=== PATIENT | female | born 1950 | race African-American/Black ===

== ENCOUNTER 2017-03-12 11:48 | Inpatient (IN) | payer BC, SELFPAY ==
[2017-03-10 10:23] LABS: BASOPHILS 1.7 %; BASOPHILS ABSOLUTE 0.05 10/3/uL (0.0-0.16); EOSINOPHILS 11.6 %; EOSINOPHILS ABSOLUTE 0.34 10/3/uL (0.0-0.53); HEMATOCRIT 33.7 % (36.0-48.0); HEMOGLOBIN 11.8 g/dL (12.0-16.0); IMMATURE GRANULOCYTES 0.3 %; IMMATURE GRANULOCYTES ABSOLUTE 0.01 10/3/uL (0.0-0.11); LYMPHOCYTES 22.8 %; LYMPHOCYTES ABSOLUTE 0.67 10/3/uL (0.67-4.30); MEAN CORPUSCULAR HEMOGLOB 29.6 pg (26.0-34.0); MEAN CORPUSCULAR VOLUME 84.7 fL (80-100); MEAN PLATELET VOLUME 8.9 fL (9.2-13.0); MONOCYTES 9.2 %; MONOCYTES ABSOLUTE 0.27 10/3/uL (0.21-1.20); NEUTROPHILS 54.4 %; PLATELET COUNT 225 10/3/uL (150-400); RBC DISTRIBUTION WIDTH 13.6 % (12.0-16.0); RED CELL COUNT 3.98 10/6/uL (4.0-5.6)
[2017-03-10 10:25] LABS: MANUAL DIFF NO %; WHITE BLOOD CELLS 2.9 10/3/uL (4.5-10.5)
[2017-03-10 10:35] LABS: CALCIUM, SERUM 9.5 MG/DL (8.5-10.4); CHLORIDE, SERUM 108 MMOL/L (96-112); CO2 (CARBON DIOXIDE) 24 MMOL/L (24-34); CREATININE 0.92 MG/DL (0.55-1.02); GFR AFRICAN AMERICAN 75 ML/MIN (>=60); GFR NON AFRICAN AMERICAN 65 ML/MIN (>=60); GLUCOSE, SERUM 88 MG/DL (60-99); POTASSIUM, SERUM 3.7 MMOL/L (3.5-5.3); SODIUM, SERUM 142 MMOL/L (135-148)
[2017-03-10 10:36] LABS: BUN (BLOOD UREA NITROGEN) 7 MG/DL (6-23)
--- NOTE | ~2017-03-12 | OP ---
Record Of Operation [facility] [address] [place]. [address] NAME: ALEJANDRO PANG : 50 STATUS : ADM IN PAT#: [id number] AGE: 66 ADM/REG DATE : 03/12/17 MR#: [id number] REPORT SERV DATE: 03/13/17 DICTATED BY: MATTI DUNBAR DATE: 03/12/17 REPORT STATUS : Draft TRANSCRIBED BY: MODL DATE: 03/12/17 DATE OF PROCEDURE: 03/12/2017 PREPROCEDURE DIAGNOSIS: Undesired port and undesired ileostomy. PROCEDURE: Removal of right IJ Kfiegm-H-Cnux and ileostomy reversal. POSTPROCEDURE DIAGNOSIS: Removal of right IJ Gcydxx-U-Fgvd and ileostomy reversal. ELECTRIC METER TECHNICIAN: Zaida. DESCRIPTION OF PROCEDURE: The patient was taken to the operating room, induced under general anesthesia, placed in the supine position. Wiseman catheter was placed. She was prepped and draped in the usual sterile fashion after the ileostomy was closed with a pursestring suture. The abdomen was kept covered with a green towel as the drapes were opened in a cruciate fashion overlying the right chest, here 10/10 drapes were used to keep the area sterile during dissection, 1st local anesthetic 1% lidocaine was injected in the skin overlying the port. A 2 cm incision was made through the prior scar. This was carried down to the level of the port using the scalpel. The port was identified as well as the hub. The capsule was opened over the hub using cautery and then the two stay sutures of Prolene suture on the right and the left were grasped with a hemostat cut and removed. Pressure was held at the neck as the port was removed. A figure of 8 stitch was placed at the catheter site and then the port pocket was closed with interrupted 3-0 Vicryl suture followed by 4-0 Monocryl subcu, Mastisol, Steri-Strips, Telfa, and a Tegaderm. At this point, the green towel was removed from the abdomen and an elliptical incision was made using the scalpel blade down to the level of the fascia using cautery. This elevated the ileostomy spur. The patient had a parastomal hernia. This made dissection somewhat difficult on the distal nonfunctioning limb. The hernia sac was opened, dissected circumferentially down to the level of the fascia until the two limbs were freed completely. This time, blue towels were placed over the abdomen. A blue load of the Endo-JENNIFER was used to transect the two limbs of the ileostomy and the mesentery taken with a clamp, cut and tie technique with 3-0 Vicryl ties. The spur was passed off the table, sent to pathology. The antimesenteric corners of the two limbs of the ileum were removed using cautery and then a limb of the endo JENNIFER placed down each side firing on the antimesenteric border. Here, the limbs were opened, and the blade scissored in order to inspect the staple line which was hemostatic. Then, great care was taken to avoid juxtaposing intersecting staple lines. Using Allis clamps and then a TX 60 stapler was used with blue load to close the enterotomy. The remnant was removed using curved scissors and then the intersecting staple lines were all reinforced with 3-0 Vicryl, [id number], and the crotch stitch was closed with interrupted 3-0 Vicryl. The mesenteric defect was too small to close. At this point, all dirty instruments, towels, and gloves were changed at this time. The bowel was returned to the abdomen and the fascia was closed with PDS medial to lateral, lateral to medial tying in the center, irrigating the wounds, closing Narcisa's with 3-0 Vicryl suture running and then the dermis was closed with interrupted 3-0 Vicryl sutures in 1 cm gaps. Telfa naila dipped in Betadine paint were placed into the gaps and then 4 x4 gauze over the top followed by Mefix tape. She tolerated the procedure well. Record Of Operation [facility] [address] [facility] [place]. [address] NAME: ALEJANDRO PANG : 50 STATUS : ADM IN [facility]#: [id number] AGE: 66 ADM/REG DATE : 03/12/17 MR#: [id number] REPORT SERV DATE: 03/13/17 DICTATED BY: MATTI DUNBAR DATE: 03/12/17 REPORT STATUS : Draft TRANSCRIBED BY: JAMSHID DATE: 03/12/17 DAVID/JAMSHID Matti Dunbar M.D. / [id number] CC: Bibiana Oro MD Jay Philippose, M.D.
--- NOTE | ~2017-03-12 | HP ---
History And Physical [address] [place]. [address] NAME: ALEJANDRO PANG : 50 STATUS : ADM IN [facility]#: [id number] AGE: 66 ADM/REG DATE : 03/12/17 MR#: [id number] REPORT SERV DATE: 03/12/17 DICTATED BY: MATTI COHEN DATE: 03/12/17 REPORT STATUS : Draft TRANSCRIBED BY: JAMSHID DATE: 03/12/17 DATE OF ADMISSION: 03/12/2017 REASON FOR ADMISSION: Ileostomy reversal. PAST MEDICAL HISTORY: Diabetes, rectal cancer, status post resection, hypertension, hyperlipidemia, sleep apnea, and gastroesophageal reflux disease. SURGICAL HISTORY: Hysterectomy in 1999, right breast cystectomy in 1996, bladder tack 2006, cataract surgery 2015, and then the low anterior resection performed robotically in 2015, with ileostomy followed by ileostomy reversal today. She had a port placed June 2016. SOCIAL HISTORY: She used to smoke a pack of cigarettes a day. She quit 10 years. She is a social drinker. Drinks 2 glasses of wine per year. FAMILY HISTORY: Positive for diabetes, heart disease, liver cancer, myocardial infarction, pancreatic cancer, and stroke. ALLERGIES: CODEINE AND ASPIRIN. MEDICATIONS: Lomotil; hydrocodone; amlodipine; aspirin; vitamin D; doxazosin; Januvia; Crestor; estradiol; Nexium; citalopram; and fish oil. REVIEW OF SYSTEMS: As stated in the HPI, otherwise, negative. PHYSICAL EXAMINATION: VITAL SIGNS: 80, 113/64, and BMI of 32.9. GENERAL: Alert, obese, black female, in no acute distress. HEENT: Normocephalic, atraumatic. EOMI. PERRLA. Oropharynx is clear. NECK: Supple. No lymphadenopathy. LUNGS: Clear to auscultation bilaterally. HEART: Regular rate and rhythm. ABDOMEN: Protuberant and obese. There is an ileostomy which is pink, viable and functional in the right lower quadrant. EXTREMITIES: Moves all extremities well. Cranial nerves 2 through 12 intact. No rashes. ASSESSMENT AND PLAN: A 66-year-old female with undesired port, undesired ileostomy, here for reversal. It is my pleasure participating in the care of your patient. DAVID/JAMSHID History And Physical [address] [place] [address] NAME: ALEJANDRO PANG : 50 STATUS : ADM IN PAT#: [id number] AGE: 66 ADM/REG DATE : 03/12/17 MR#: [id number] REPORT SERV DATE: 03/12/17 DICTATED BY: MATTI COHEN DATE: 03/12/17 REPORT STATUS : Draft TRANSCRIBED BY: MODL DATE: 03/12/17 Matti Cohen M.D. / [id number] CC: Matti Cohen M.D.
[~2017-03-12 11:48] MED LIST: ASAB PO; CALTRA600D PO; CARDURA8 MG PO; CELEXA20 PO; CRESTOR10 PO; DIL2TAB PO; ESTRACE1 MG PO; EXFORGE1 TA2 PO; FISH-EPA1000 MG PO; JANUVIA100 MG PO; MULTI-VIT HP PO; NEXIUM40 PO; NORV10 PO; VITAMIN D31000 UNIT PO
[2017-03-12 16:56] LABS: HEMATOCRIT 32.6 % (36.0-48.0)
[2017-03-13 06:00] LABS: BASOPHILS 0.2 %; BASOPHILS ABSOLUTE 0.01 10/3/uL (0.0-0.16); EOSINOPHILS 0 %; HEMATOCRIT 31.9 % (36.0-48.0); LYMPHOCYTES 7.3 %; LYMPHOCYTES ABSOLUTE 0.48 10/3/uL (0.67-4.30); MEAN CORPUS HGB CONC 34.5 g/dL (32.0-36.0); MEAN CORPUSCULAR HEMOGLOB 29.2 pg (26.0-34.0); MEAN CORPUSCULAR VOLUME 84.6 fL (80-100); MONOCYTES 2.9 %; MONOCYTES ABSOLUTE 0.19 10/3/uL (0.21-1.20); NEUTROPHILS 89.6 %; NEUTROPHILS ABSOLUTE 5.91 10/3/uL (2.02-8.40); PLATELET COUNT 206 10/3/uL (150-400); RBC DISTRIBUTION WIDTH 13.4 % (12.0-16.0); RED CELL COUNT 3.77 10/6/uL (4.0-5.6)
[2017-03-13 06:01] LABS: MANUAL DIFF NO %; WHITE BLOOD CELLS 6.6 10/3/uL (4.5-10.5)
[2017-03-13 06:05] LABS: BUN (BLOOD UREA NITROGEN) 10 MG/DL (6-23); CALCIUM, SERUM 9.1 MG/DL (8.5-10.4); CHLORIDE, SERUM 108 MMOL/L (96-112); CO2 (CARBON DIOXIDE) 23 MMOL/L (24-34); CREATININE 0.79 MG/DL (0.55-1.02); GFR AFRICAN AMERICAN 90 ML/MIN (>=60); GFR NON AFRICAN AMERICAN 78 ML/MIN (>=60); POTASSIUM, SERUM 4.4 MMOL/L (3.5-5.3); SODIUM, SERUM 142 MMOL/L (135-148)
[2017-03-13 06:11] LABS: GLUCOSE, SERUM 126 MG/DL (60-99)
[2017-03-14] MEDS ORDERED: DIL2TAB PO (08:51)
== END 2017-03-14 11:33 | disposition home or self-care (01) | DRG 331 ==
LOC: SDC/OF 11:48 → PACU 16:33 → 5SO 17:25
PROVIDERS: Surgery
PROC: 0DBB0ZZ Excision of Ileum, Open Approach (ICD-10-PCS; principal; 2017-03-12 13:45)
PROC: 0JPV3XZ Removal of Tunneled Vascular Access Device from Upper Extremity Subcutaneous Tissue and Fascia, Percutaneous Approach (ICD-10-PCS; 2017-03-12 13:45)
DX: Z43.2 Encounter for attention to ileostomy (principal); I10 Essential (primary) hypertension; E11.9 Type 2 diabetes mellitus without complications; K43.5 Parastomal hernia without obstruction or gangrene; F17.210 Nicotine dependence, cigarettes, uncomplicated; E78.5 Hyperlipidemia, unspecified; G47.33 Obstructive sleep apnea (adult) (pediatric); K21.9 Gastro-esophageal reflux disease without esophagitis; Z85.048 Personal history of other malignant neoplasm of rectum, rectosigmoid junction, and anus; Z82.49 Family history of ischemic heart disease and other diseases of the circulatory system; Z83.3 Family history of diabetes mellitus; Z80.8 Family history of malignant neoplasm of other organs or systems; Z82.3 Family history of stroke; Z88.5 Allergy status to narcotic agent; Z88.6 Allergy status to analgesic agent; Z79.899 Other long term (current) drug therapy; Z79.82 Long term (current) use of aspirin; E78.00 Pure hypercholesterolemia, unspecified
CPT/HCPCS: 80048; 82962; 85014; 85018; 85025; 88300; 88304; 93005; A9270-GY; C9113; J0690; J1885; J2250; J2270; J2370; J2405; J2795; J3010